=== PATIENT | female | born 1995 | race Hispanic/Latino ===

== ENCOUNTER → 2018-01-10 | Outpatient (CLI) | payer MEDICAID ==
[~2018-01-10] MED LIST: GADOBENATE DIMEGLUMINE 10 ML IV ONE; GADOBENATE DIMEGLUMINE 20 ML IV ONE
== END | disposition home or self-care (01) ==
LOC: RAH 09:57
PROVIDERS: ATTEND Family Medicine
DX: R51 Headache (principal)
CPT/HCPCS: 70553; A9577